=== PATIENT | female | born 1945 | race Caucasian/White ===

== ENCOUNTER → 2017-06-08 | Outpatient (CLI) | payer MEDICARE, OTHER ==
[~2017-06-08] MED LIST: ADVAIR 250/5028 PUFF INH; ALBUTEROL2.5 MG/NEB IN; AMOXICILLIN 50500 MG PO; ASPIRIN EC325 M1 PO; ATIVAN GENERIC0.5 MG PO; AVELOX400 MG PO; AVPAK AZITHROM250 MG PO; AZITHROMYCIN250 MG PO; CALCIUM; CEPHALEXIN500 MG PO; CHANTIX1 M1 PO; CHANTIX1 TAB PO; CIPRO 500MG TA500 MG PO; DULERA1 ARO IH; LASIX 40MG. TAB40 MG PO; LEVAQUIN500 MG PO; NYSTATIN 1100000 UNI PO; POTASSIUM CHLO10 ME3 PO; PREDNISONE 10MG10 MG PO; PREDNISONE 20MG20 MG PO; PREDNISONE20 MG; RITE AID MELATON5 MG PO; SPIRIVA18 MCG IH
--- NOTE | 2017-06-08 16:31 | RADIOLOGY REPORT PS360 ---
CHEST(2 VIEWS-NOT PORTABLE) HISTORY: Shortness of breath SOB ORDERING PHYSICIAN: HUSAM CAMARENA PATIENT AGE: 71 years COMPARISON: 11/21/2013 FINDINGS: There has been interval development of a 2.5 x 2.5 cm left upper lobe mass with spiculated margins highly suspicious for neoplasm. Suggest chest CT for further evaluation with contrast. The left hilum is slightly prominent and could be related to underlying adenopathy. There are emphysematous changes with hyperinflation and attenuation of the peripheral pulmonary vessels. No effusions. There is mild wedging involving several dorsal vertebral bodies worse at this T6 level. These findings are not significantly changed and are likely osteoporotic in nature. IMPRESSION: 1. 2.5 cm left upper lobe mass suspicious for neoplasm. 2. Mild prominence of the left hilum. 3. Recommend CT chest with contrast for further evaluation
== END ==
LOC: RAD 12:50
DX: R06.02 Shortness of breath (principal)

== ENCOUNTER → 2017-06-19 | Outpatient (CLI) | payer MEDICARE, OTHER ==
[2017-06-19 14:17] LABS: BUN 12 mg/dL (7-18)
[2017-06-19 14:20] LABS: GFR (ESTIMATED) 82 ML/MIN (59-)
--- NOTE | 2017-06-20 06:41 | RADIOLOGY REPORT PS360 ---
CT CHEST W/ CONTRAST INDICATION: LUNG NODULE,MASS ORDERING PHYSICIAN: Charly Olmstead MD PATIENT AGE: 71 years COMPARISON: 03/15/2015 TECHNIQUE: Axial images are obtained with contrast. Sagittal and coronal reformatted images are reviewed as well. FINDINGS: No obvious mediastinal or hilar mass. There is small nodes in the subcarinal region measuring up to 1.5 x 1.2 cm in subcarinal area and 1.8 x 1 cm medial to the right bronchus intermedius.. There are coronary artery calcifications. There is normal heart size without evidence of pericardial effusion. There are severe centrilobular emphysematous changes. Bilateral scarring is noted. There has been interval development of a 2.5 cm spiculated mass in the left upper lobe. Spiculation of the stent to the pleural surface laterally. An additional 2 cm spiculated mass is present in the superior segment of the right lower lobe medially at the as ago esophageal recess. Both of these lesions are suspicious for neoplasm and could represent synchronous primary bronchogenic carcinoma or metastatic disease. 7 mm opacity is present in the left upper lobe and could relate to an area of fibrosis or developing neoplasm. Scarring is present throughout both lungs as previously described. There is an additional opacity in the right lower lobe posteriorly measuring 1.5 x 0.6 cm possibly related to an area of scarring. Stable nodular density is present within the lingula 7 mm. A 6 mm parenchymal opacity is present in the right upper lobe laterally. This appears slightly more prominent when compared to the previous studies. Scarring in the right upper lobe posteriorly once again noted with new parenchymal opacity in the right apex medially nonspecific. No effusions are evident. There are multiple wedge compression changes involving the thoracic spine from T5 to T11 which do not appear significantly changed. Upper abdominal images are unremarkable. IMPRESSION: 1. Interval development of suspicious spiculated nodules in the left upper lobe and superior segment of the right lower lobe. These are suspicious for neoplasm and may represent metastatic disease versus synchronous primary neoplasm. A new left upper lobe 7 mm nodular opacity is also noted may be due to an area of scarring or neoplasm. Please see above for detail. 2. Severe centrilobular emphysematous changes with scattered areas of fibrosis. 3. Multiple wedge compression changes of the thoracic spine which appear stable. 4. Mild subcarinal adenopathy
== END ==
LOC: RAD 13:53
PROVIDERS: Internal Medicine
DX: R91.1 Solitary pulmonary nodule (principal)
CPT/HCPCS: Q9967